=== PATIENT | female | born 1960 | race Caucasian/White ===

== ENCOUNTER 2022-03-20 10:31 | Day surgery (SDC) | payer OTHER ==
[2022-03-16 11:05] VITALS: BMI 27.3
[2022-03-20 11:20] VITALS: RESP 20
[2022-03-20 13:09] VITALS: TEMP 97.6
[2022-03-20 13:12] VITALS: BP 123/74; PULSE 74
== END 2022-03-20 13:10 | disposition home or self-care (01) ==
LOC: FASU-ENDO 10:31
PROVIDERS: ATTEND Internal Medicine Gastroenterology
PROC: 0DJD8ZZ Inspection of Lower Intestinal Tract, Via Natural or Artificial Opening Endoscopic (ICD-10-PCS; principal; 2022-03-20 12:21)
DX: Z12.11 Encounter for screening for malignant neoplasm of colon (principal)

== ENCOUNTER 2023-05-07 14:46 | Inpatient (IN) | payer OTHER ==
[2023-05-07 16:45] LABS: BASO % 0.7 % (0-2.0); EOS % 1.6 % (0-4.5); HEMATOCRIT 37.9 % (32.4-45.2); HEMOGLOBIN 12.4 GM/dL (10.7-15.3); LYMPH % 31.6 % (8-40); MCH 28.9 pg (25.7-33.7); MCHC 32.8 g/dl (32.0-36.0); MEAN CELL VOLUME 88.1 fl (80-96); MEAN PLT VOLUME 8.4 fl (7.5-11.1); MONO % 7.5 % (3.8-10.2); NEUT % 58.6 % (42.8-82.8); PLATELET COUNT 215 10^3/uL (134-434); RDW 13.7 % (11.6-15.6); WHITE BLOOD COUNT 6.3 K/mm3 (4.0-10.0)
[2023-05-07 16:51] LABS: EPI CELLS 6 /uL (0-25.1); HYALINE CASTS 0 /uL (0-3.1); URINE APPEARANCE CLEAR; URINE BACTERIA >9,000 /uL (0-1359); URINE BILIRUBIN NEGATIVE (NEGATIVE); URINE COLOR YELLOW; URINE GLUCOSE (UA) NEGATIVE (NEGATIVE); URINE KETONE TRACE (NEGATIVE); URINE LEUK ESTERASE 2+ (NEGATIVE); URINE NITRITE POSITIVE (NEGATIVE); URINE PROTEIN NEGATIVE (NEGATIVE); URINE RBC 8 /uL (0-23.9); URINE UROBILINOGEN 0.2 mg/dL (0.2-1.0); URINE WBC 47 /uL (0-25.8)
[2023-05-07 17:11] LABS: CALCIUM 9.2 mg/dL (8.5-10.1)
[2023-05-07 17:12] LABS: ALBUMIN 3.7 g/dl (3.4-5.0); BLOOD UREA NITROGEN 12.3 mg/dL (7-18)
[2023-05-07 17:15] LABS: CREATININE 0.8 mg/dL (0.55-1.3)
[2023-05-07 17:16] LABS: BILIRUBIN,TOTAL 0.4 mg/dL (0.2-1); TOT PROT 6.8 g/dl (6.4-8.2)
[2023-05-07] MEDS: GENTAMICIN INJECTION 300 MG in DEXTROSE 5%-WATER - 250 ML IVPB ONE (18:14)
[2023-05-07] MEDS ORDERED: ACETAMINOPHEN 325 MG TABLET (FP) PO PRN (18:30)
[2023-05-07] MEDS ORDERED: ACETAMINOPHEN 1000 MG/100 ML BAG IVPB PRN (22:54)
[2023-05-07 23:29] VITALS: BMI 29.0
[2023-05-07] MEDS: DEXTROSE 5%-0.45% SALINE 1,000 ML IV SCH (23:43)
[2023-05-08 08:57] LABS: BASO % 0.5 % (0-2.0); EOS % 3.7 % (0-4.5); HEMOGLOBIN 11.9 GM/dL (10.7-15.3); LYMPH % 31.6 % (8-40); MCH 29.3 pg (25.7-33.7); MCHC 33.1 g/dl (32.0-36.0); MEAN CELL VOLUME 88.7 fl (80-96); MONO % 10.4 % (3.8-10.2); NEUT % 53.8 % (42.8-82.8); PLATELET COUNT 201 10^3/uL (134-434); RBC 4.06 M/mm3 (3.60-5.2); RDW 13.5 % (11.6-15.6); WHITE BLOOD COUNT 5.6 K/mm3 (4.0-10.0)
[2023-05-08 09:10] LABS: POTASSIUM 4.5 mmol/L (3.5-5.1)
[2023-05-08 09:16] LABS: ALBUMIN 3.2 g/dl (3.4-5.0); CALCIUM 9.2 mg/dL (8.5-10.1)
[2023-05-08 09:17] LABS: BLOOD UREA NITROGEN 15.7 mg/dL (7-18)
[2023-05-08 09:18] LABS: CREATININE 0.8 mg/dL (0.55-1.3)
[2023-05-08 09:21] LABS: BILIRUBIN,TOTAL 0.4 mg/dL (0.2-1); TOT PROT 6.1 g/dl (6.4-8.2)
[2023-05-08] MEDS: POLYETHYLENE GLYCOL (HEALTHYLAX) 3350 17 GM PACKET PO SCH (10:19)
[2023-05-08] MEDS: ENOXAPARIN NA (PORCINE) 40 MG/0.4 ML DISP.SYRIN SQ SCH (10:19)
[2023-05-08] MEDS: ASPIRIN 81 MG CHEWABLE TABLETS PO SCH (10:19)
[2023-05-08] MEDS: NITROFURANTOIN MONOHYD/M-CRYST 100 MG CAPSULE PO SCH (14:43)
[2023-05-09 22:33] VITALS: RESP 18
[2023-05-10 13:18] VITALS: BP 124/71; PULSE 86; TEMP 97.7
== END 2023-05-10 15:14 | disposition home or self-care (01) | DRG 463 ==
LOC: JER 14:46 → JERBED 16:15 → J8W 20:37 → OBSVTOIN 22:52 → J7W 05-08 21:17
PROVIDERS: ADMIT Internal Medicine; ATTEND Internal Medicine
DX: N39.0 Urinary tract infection, site not specified (principal); I10 Essential (primary) hypertension
CPT/HCPCS: 36415; 74176-TC; 80053; 81003; 85025; 87086; 87186; 93005; 93010; 99285-25; G0378

== ENCOUNTER 2023-06-16 19:21 | Observation (INO) | payer OTHER ==
[2023-06-16 19:26] VITALS: BMI 27.3
[2023-06-16 21:13] LABS: BASO % 0.5 % (0-2.0); EOS % 2.2 % (0-4.5); HEMATOCRIT 37.4 % (32.4-45.2); HEMOGLOBIN 12.3 GM/dL (10.7-15.3); LYMPH % 29.7 % (8-40); MEAN PLT VOLUME 8.7 fl (7.5-11.1); MONO % 9.7 % (3.8-10.2); NEUT % 57.9 % (42.8-82.8); PLATELET COUNT 226 10^3/uL (134-434); RBC 4.25 M/mm3 (3.60-5.2); RDW 13.6 % (11.6-15.6); WHITE BLOOD COUNT 6.3 K/mm3 (4.0-10.0)
[2023-06-16 21:24] LABS: EPI CELLS 1 /uL (0-25.1); HYALINE CASTS 0 /uL (0-3.1); PH,URINE 5.5 (5.0-8.0); URINE APPEARANCE CLEAR; URINE BACTERIA 2 /uL (0-1359); URINE BILIRUBIN NEGATIVE (NEGATIVE); URINE COLOR YELLOW; URINE GLUCOSE (UA) NEGATIVE (NEGATIVE); URINE KETONE NEGATIVE (NEGATIVE); URINE LEUK ESTERASE TRACE (NEGATIVE); URINE NITRITE NEGATIVE (NEGATIVE); URINE PROTEIN NEGATIVE (NEGATIVE); URINE UROBILINOGEN 0.2 mg/dL (0.2-1.0); URINE WBC 6 /uL (0-25.8)
[2023-06-16 21:42] LABS: CALCIUM 9.5 mg/dL (8.5-10.1)
[2023-06-16 21:43] LABS: BLOOD UREA NITROGEN 22.2 mg/dL (7-18)
[2023-06-16 21:45] LABS: CREATININE 0.8 mg/dL (0.55-1.3)
[2023-06-16 21:51] LABS: URINE RBC 477.7 /uL (0-23.9)
[2023-06-16] MEDS ORDERED: SODIUM CHLORIDE 0.9% 500 ML INFUS.BAG IV ONE (21:53)
[2023-06-16] MEDS ORDERED: DEXTROSE 5% IVPB SCH (22:00)
[2023-06-16] MEDS ORDERED: WATER IVPB SCH (22:00)
[2023-06-16] MEDS ORDERED: GENTAMICIN IVPB SCH (22:00)
[2023-06-16] MEDS ORDERED: GENTAMICIN IVPB ONE (22:20)
[2023-06-16] MEDS ORDERED: DEXTROSE 5% IVPB ONE (22:20)
[2023-06-16] MEDS ORDERED: WATER IVPB ONE (22:20)
[2023-06-17] MEDS ORDERED: ACETAMINOPHEN 1000 MG/100 ML BAG IVPB PRN (02:13)
[2023-06-17] MEDS: DEXTROSE 5%-0.45% SALINE 1,000 ML IV SCH (02:40)
[2023-06-17 06:22] LABS: BASO % 0.4 % (0-2.0); EOS % 2.7 % (0-4.5); HEMATOCRIT 33.6 % (32.4-45.2); HEMOGLOBIN 10.9 GM/dL (10.7-15.3); LYMPH % 39.1 % (8-40); MCH 28.8 pg (25.7-33.7); MCHC 32.5 g/dl (32.0-36.0); MEAN CELL VOLUME 88.6 fl (80-96); MEAN PLT VOLUME 8.5 fl (7.5-11.1); MONO % 11.4 % (3.8-10.2); NEUT % 46.4 % (42.8-82.8); PLATELET COUNT 199 10^3/uL (134-434); RBC 3.79 M/mm3 (3.60-5.2); RDW 13.6 % (11.6-15.6); WHITE BLOOD COUNT 5.1 K/mm3 (4.0-10.0)
[2023-06-17 06:36] LABS: POTASSIUM 3.9 mmol/L (3.5-5.1)
[2023-06-17 06:38] LABS: CALCIUM 8.4 mg/dL (8.5-10.1)
[2023-06-17 06:39] LABS: BLOOD UREA NITROGEN 14.8 mg/dL (7-18)
[2023-06-17 06:42] LABS: CREATININE 0.7 mg/dL (0.55-1.3)
[2023-06-17 06:44] LABS: BILIRUBIN,TOTAL 0.4 mg/dL (0.2-1)
[2023-06-17] MEDS ORDERED: GENTAMICIN 80 MG PREMIXED IVPB 80 MG/100 ML BAG IVPB SCH (10:00)
[2023-06-17] MEDS: ASPIRIN 81 MG CHEWABLE TABLETS PO SCH (10:10)
[2023-06-17] MEDS: ENOXAPARIN NA (PORCINE) 40 MG/0.4 ML DISP.SYRIN SQ SCH (10:10)
[2023-06-17] MEDS ORDERED: ACETAMINOPHEN INJECTION 100 ML IVPB ONE (11:54)
[2023-06-17] MEDS ORDERED: NITROFURANTOIN MACROCRYSTAL 50 MG CAPSULE (FP) ONE (12:35)
[2023-06-17] MEDS: NITROFURANTOIN MONOHYD/M-CRYST 100 MG CAPSULE PO SCH ×2 (13:47→22:12)
[2023-06-18 01:01] VITALS: RESP 18
[2023-06-18] MEDS: DEXTROSE 5%-0.45% SALINE 1,000 ML IV SCH (01:16)
[2023-06-18 06:56] VITALS: BP 113/65; PULSE 78; TEMP 97.7
[2023-06-18 07:34] LABS: BASO % 0.5 % (0-2.0); EOS % 2.4 % (0-4.5); HEMATOCRIT 36.7 % (32.4-45.2); HEMOGLOBIN 11.8 GM/dL (10.7-15.3); LYMPH % 30.8 % (8-40); MCH 28.6 pg (25.7-33.7); MCHC 32.1 g/dl (32.0-36.0); MEAN PLT VOLUME 8.8 fl (7.5-11.1); MONO % 11.2 % (3.8-10.2); NEUT % 55.1 % (42.8-82.8); PLATELET COUNT 205 10^3/uL (134-434); RBC 4.12 M/mm3 (3.60-5.2); RDW 13.9 % (11.6-15.6); WHITE BLOOD COUNT 5.9 K/mm3 (4.0-10.0)
[2023-06-18 07:40] LABS: POTASSIUM 4.2 mmol/L (3.5-5.1)
[2023-06-18 07:43] LABS: CALCIUM 9.1 mg/dL (8.5-10.1)
[2023-06-18 07:44] LABS: ALBUMIN 3.2 g/dl (3.4-5.0)
[2023-06-18 07:47] LABS: CREATININE 0.7 mg/dL (0.55-1.3)
[2023-06-18 07:49] LABS: BILIRUBIN,TOTAL 0.2 mg/dL (0.2-1); TOT PROT 6.3 g/dl (6.4-8.2)
[2023-06-18] MEDS: NITROFURANTOIN MONOHYD/M-CRYST 100 MG CAPSULE PO SCH (11:22)
[2023-06-18] MEDS: ASPIRIN 81 MG CHEWABLE TABLETS PO SCH (11:22)
[2023-06-18] MEDS: ENOXAPARIN NA (PORCINE) 40 MG/0.4 ML DISP.SYRIN SQ SCH (11:22)
== END 2023-06-18 13:45 | disposition home or self-care (01) ==
LOC: JER 19:21 → UNDOADMOB 20:58 → INTOOBSV 20:58 → OBSVTOIN 20:58 → JERBED 20:58
PROVIDERS: ADMIT Internal Medicine; ATTEND Internal Medicine
PROC: 3E033NZ Introduction of Analgesics, Hypnotics, Sedatives into Peripheral Vein, Percutaneous Approach (ICD-10-PCS; principal; 2023-06-17)
PROC: 3E03329 Introduction of Other Anti-infective into Peripheral Vein, Percutaneous Approach (ICD-10-PCS; 2023-06-17)
PROC: 3E023GC Introduction of Other Therapeutic Substance into Muscle, Percutaneous Approach (ICD-10-PCS; 2023-06-17)
PROC: 3E033NZ Introduction of Analgesics, Hypnotics, Sedatives into Peripheral Vein, Percutaneous Approach (ICD-10-PCS; 2023-06-17)
PROC: 3E0337Z Introduction of Electrolytic and Water Balance Substance into Peripheral Vein, Percutaneous Approach (ICD-10-PCS; 2023-06-17)
DX: N39.0 Urinary tract infection, site not specified (principal); I10 Essential (primary) hypertension; R10.30 Lower abdominal pain, unspecified; K59.00 Constipation, unspecified; Z87.891 Personal history of nicotine dependence; Z88.0 Allergy status to penicillin
CPT/HCPCS: 36415; 74177-TC; 76775-TC; 76856-TC; 80048; 80053; 81003; 85025; 87086; 93005; 93010; 96365; 96366; 96367; 96372; 96375; 99285-25; G0378; Q9967